=== PATIENT | female | born 1985 | race Caucasian/White ===

== ENCOUNTER 2018-11-15 19:31 | Emergency (ER) | payer MEDICAID ==
[~2018-11-15] VITALS: Ht 180.3 cm; Wt 117.9 kg
[2018-11-15 20:37] LABS: BASOPHILS ABSOLUTE AUTO 0.04 K/mm3 (0.00-0.23); BASOPHILS PERCENT AUTO 0 % (0-2); EOSINOPHILS ABSOLUTE AUTO 0.06 K/mm3 (0.00-0.68); EOSINOPHILS PERCENT AUTO 0 % (0-6); Hematocrit 36.4 % (33.0-51.0); Hemoglobin 11.4 g/dL (11.5-16.0); IMMATURE GRAN ABSOLUTE AUTO 0.05 K/mm3 (0.00-0.10); IMMATURE GRAN PERCENT AUTO 0 % (0-1); LYMPHOCYTES ABSOLUTE AUTO 1.34 K/mm3 (0.84-5.20); LYMPHOCYTES PERCENT AUTO 8 % (21-46); MONOCYTES ABSOLUTE AUTO 1.34 K/mm3 (0.16-1.47); MONOCYTES PERCENT AUTO 8 % (4-13); Mean Corpuscular HGB 22.8 pg (26.0-34.0); Mean Corpuscular HGB Conc 31.3 g/dL (31.5-36.5); Mean Corpuscular Volume 73 fL (80-100); Mean Platelet Volume 11.3 fL (9.1-12.4); NEUTROPHILS ABSOLUTE AUTO 14.01 K/mm3 (1.96-9.15); NEUTROPHILS PERCENT AUTO 83 % (41-73); Platelet Count 246 K/mm3 (150-400); RDW Coefficient Variation 15.8 % (11.7-14.2); RDW Standard Deviation 40.6 fL (35.1-46.3); White Blood Cell Count 16.84 K/mm3 (4.00-11.30)
[2018-11-15 21:00] LABS: Alanine Aminotransfer (ALT/SGP 21 U/L (12-78); Albumin, Blood 3.2 g/dL (3.4-5.0); Albumin/Globulin Ratio 0.8 (0.8-1.8); Alk Phos 81 U/L (50-136); Anion Gap 8 mmol/L (6-16); Aspartate Aminotrans (AST/SGOT 12 U/L (12-37); Bilirubin, Total 0.3 mg/dL (0.1-1.0); Blood Urea Nitrogen 8 mg/dL (8-24); Bun/Creatinine Ratio 13.7 (12.0-20.0); CO2, Blood 24 mmol/L (21-32); Calcium, Blood 8.7 mg/dL (8.5-10.1); Chloride, Blood 105 mmol/L (98-108); Creatinine, Blood 0.58 mg/dL (0.40-1.00); Globulin, Blood 3.8 g/dL (2.2-4.0); Glomerular Filtration Rate >60 (60-); Glucose, Blood 105 mg/dL (70-99); Potassium, Blood 3.4 mmol/L (3.5-5.5); Sodium, Blood 137 mmol/L (136-145)
[2018-11-15 21:32] LABS: Source, Urine Clean Catch
[2018-11-15 21:36] LABS: Bilirubin, Urine Neg (Neg); Blood, Urine 4+ (Neg); Glucose Qualitative, Urine Neg (Neg); Ketones, Urine Neg (Neg); Leukocyte Esterase, Urine 1+ (Neg); Nitrite, Urine Neg (Neg); Protein, Urine 2+ (Neg); Specific Gravity, Urine 1.005 (1.003-1.022); Urobilinogen, Urine 2+ (Normal)
[2018-11-15 21:37] LABS: Appearance, Urine Clear (Clear); Color, Urine Yellow (P-Yellow)
[2018-11-15 21:45] LABS: Bacteria Few /hpf; Red Blood Cells, Urine 0-2 /hpf (0-2); Squamous Epithelial Cells Few /hpf (Few)
[2018-11-15] MEDS ORDERED: Monodox100 MG PO (22:46)
[2018-11-15] MEDS ORDERED: Bactrim Ds Tab1 EACH PO (22:50)
== END 2018-11-15 23:00 | disposition home or self-care (01) ==
LOC: ER 19:31
PROVIDERS: Physician Assistant
DX: L03.221 Cellulitis of neck (principal); N39.0 Urinary tract infection, site not specified; E03.9 Hypothyroidism, unspecified
CPT/HCPCS: 36415; 72193; 80053; 81001; 85025; 87086; 99284-25; Q9967

== ENCOUNTER 2019-09-21 02:48 | Emergency (ER) | payer OTHER ==
[~2019-09-21] VITALS: Ht 180.3 cm; Wt 104.3 kg
[~2019-09-21 02:48] MED LIST: Bactrim Ds Tab1 EACH PO; Monodox100 MG PO
[2019-09-21] MEDS ORDERED: Prednisone50 MG PO (03:18)
== END 2019-09-21 03:27 | disposition home or self-care (01) ==
LOC: ER 02:48
DX: O99.89 Other specified diseases and conditions complicating pregnancy, childbirth and the puerperium (principal); R21 Rash and other nonspecific skin eruption; Z3A.10 10 weeks gestation of pregnancy
CPT/HCPCS: 99282

== ENCOUNTER 2019-09-27 21:31 | Emergency (ER) | payer OTHER ==
[~2019-09-27] VITALS: Ht 180.3 cm; Wt 104.3 kg
[~2019-09-27 21:31] MED LIST changes: +Prednisone50 MG PO
[2019-09-27] MEDS ORDERED: Pepcid20 MG PO (22:52)
[2019-09-27] MEDS ORDERED: BENADRYL25 MG PO (22:52)
== END 2019-09-27 23:30 | disposition home or self-care (01) ==
LOC: ER 21:31
DX: L50.9 Urticaria, unspecified (principal); Z79.899 Other long term (current) drug therapy; Z87.891 Personal history of nicotine dependence
CPT/HCPCS: 96372; 99283-25; J3301; Q0163

== ENCOUNTER 2019-10-06 20:47 | Emergency (ER) | payer OTHER ==
[~2019-10-06] VITALS: Ht 180.3 cm; Wt 104.3 kg
[~2019-10-06 20:47] MED LIST changes: +BENADRYL25 MG PO; +Pepcid20 MG PO
[2019-10-06] MEDS ORDERED: PRED5 PO (21:10)
[2019-10-06] MEDS ORDERED: Bactrim Ds Tab1 EACH PO (21:20)
[2019-10-06] MEDS ORDERED: CEPH500 PO (21:20)
== END 2019-10-06 21:37 | disposition home or self-care (01) ==
LOC: ER 20:47
DX: L03.221 Cellulitis of neck (principal); R21 Rash and other nonspecific skin eruption; E11.9 Type 2 diabetes mellitus without complications; E03.9 Hypothyroidism, unspecified; Z79.899 Other long term (current) drug therapy
CPT/HCPCS: 99283; A9270; A9270-GY

== ENCOUNTER 2020-09-16 20:15 | Emergency (ER) | payer OTHER ==
[~2020-09-16] VITALS: Ht 180.3 cm; Wt 122.5 kg
[~2020-09-16 20:15] MED LIST changes: +CEPH500 PO; +PRED5 PO
[2020-09-17] MEDS ORDERED: Norco 5-325 Ta1 EACH PO (11:44)
[2020-09-17] MEDS ORDERED: AMOCLA875 PO (11:44)
== END 2020-09-16 22:53 | disposition left against medical advice (07) ==
LOC: ER 20:15
DX: Z53.21 Procedure and treatment not carried out due to patient leaving prior to being seen by health care provider (principal)

== ENCOUNTER 2020-09-17 10:43 | Emergency (ER) | payer OTHER ==
[~2020-09-17] VITALS: Ht 180.3 cm; Wt 97.5 kg
[2020-09-17] MEDS ORDERED: AMOCLA875 PO (11:44)
[2020-09-17] MEDS ORDERED: Norco 5-325 Ta1 EACH PO (11:44)
== END 2020-09-17 12:09 | disposition home or self-care (01) ==
LOC: ER 10:43
DX: O99.611 Diseases of the digestive system complicating pregnancy, first trimester (principal); K01.1 Impacted teeth; K02.9 Dental caries, unspecified; Z3A.10 10 weeks gestation of pregnancy; Z79.52 Long term (current) use of systemic steroids; Z79.899 Other long term (current) drug therapy
CPT/HCPCS: 99282

== ENCOUNTER → 2021-03-06 | Outpatient (CLI) | payer OTHER ==
[~2021-03-06] MED LIST changes: +AMOCLA875 PO; +Norco 5-325 Ta1 EACH PO
[2021-03-08 17:10] LABS: HPV 16 Negative (Negative); HPV 18 Positive (Negative); HPV OTHER HR TYPES Positive (Negative)
== END | disposition home or self-care (01) ==
LOC: LAB SHORT 17:46 → LAB 17:46
PROVIDERS: Obstetrics & Gynecology
DX: Z01.419 Encounter for gynecological examination (general) (routine) without abnormal findings (principal)
CPT/HCPCS: 87624; 87625; G0123

== ENCOUNTER → 2021-08-22 | Outpatient (CLI) | payer OTHER | END | disposition home or self-care (01) | LOC: LAB SHORT 11:53 → LAB 11:53 | DX: O09.93 Supervision of high risk pregnancy, unspecified, third trimester (principal) | CPT/HCPCS: 87081; 87150 ==

== ENCOUNTER 2022-12-17 19:38 | Emergency (ER) | payer OTHER ==
[~2022-12-17] VITALS: Ht 180.3 cm; Wt 90.7 kg
[~2022-12-17 19:38] MED LIST changes: +DOCU100 PO; +IBUP800 PO; +OXYC5 PO; +PRENATAL TABLE1 EAC2 PO
[2022-12-17 22:10] LABS: BASOPHILS ABSOLUTE AUTO 0.06 K/mm3 (0.00-0.23); BASOPHILS PERCENT AUTO 0 % (0-2); EOSINOPHILS ABSOLUTE AUTO 0.12 K/mm3 (0.00-0.68); EOSINOPHILS PERCENT AUTO 1 % (0-6); Hematocrit 37.4 % (33.0-51.0); Hemoglobin 11.7 g/dL (11.5-16.0); IMMATURE GRAN ABSOLUTE AUTO 0.07 K/mm3 (0.00-0.10); IMMATURE GRAN PERCENT AUTO 1 % (0-1); LYMPHOCYTES ABSOLUTE AUTO 1.21 K/mm3 (0.84-5.20); LYMPHOCYTES PERCENT AUTO 8 % (21-46); MONOCYTES ABSOLUTE AUTO 0.68 K/mm3 (0.16-1.47); MONOCYTES PERCENT AUTO 4 % (4-13); Mean Corpuscular HGB 20.9 pg (26.0-34.0); Mean Corpuscular HGB Conc 31.3 g/dL (31.5-36.5); Mean Corpuscular Volume 67 fL (80-100); Mean Platelet Volume 10.9 fL (9.1-12.4); NEUTROPHILS ABSOLUTE AUTO 13.26 K/mm3 (1.96-9.15); NEUTROPHILS PERCENT AUTO 86 % (41-73); Platelet Count 378 K/mm3 (150-400); RDW Coefficient Variation 16.5 % (11.7-14.2); RDW Standard Deviation 38.4 fL (35.1-46.3); Red Blood Cell Count 5.61 M/mm3 (3.80-5.20)
[2022-12-17 22:43] LABS: Albumin, Blood 3.9 g/dL (3.4-5.0); Albumin/Globulin Ratio 0.9 (0.8-1.8); Bilirubin, Total 0.5 mg/dL (0.1-1.0); Bun/Creatinine Ratio 11.8 (12.0-20.0); Calcium, Blood 9.8 mg/dL (8.5-10.1); Creatinine, Blood 0.85 mg/dL (0.40-1.00); Globulin, Blood 4.3 g/dL (2.2-4.0); Potassium, Blood 3.3 mmol/L (3.5-5.5); Total Protein, Blood 8.2 g/dL (6.4-8.2)
[2022-12-18 01:40] LABS: Source, Urine Clean Catch
[2022-12-18 01:42] LABS: Appearance, Urine Hazy (Clear); Bilirubin, Urine Neg (Neg); Blood, Urine 4+ (Neg); Color, Urine Yellow (P-Yellow); Glucose Qualitative, Urine Neg (Neg); Ketones, Urine 4+ (Neg); Leukocyte Esterase, Urine Neg (Neg); Nitrite, Urine Neg (Neg); Protein, Urine 2+ (Neg); Urobilinogen, Urine NORM (Normal)
[2022-12-18 01:55] LABS: Amorphous Light (0-Heavy); Bacteria Few /hpf; Squamous Epithelial Cells Rare /hpf (Few); White Blood Cells, Urine 0-2 /hpf (0-5)
[2022-12-18 02:07] VITALS: BP 95/62
[2022-12-18] MEDS ORDERED: IBUP600 PO (02:11)
[2022-12-18] MEDS ORDERED: ONDA4ODT MM (02:11)
[2022-12-18] MEDS ORDERED: Norco 5-325 Ta1 EACH PO (02:11)
== END 2022-12-18 02:39 | disposition home or self-care (01) ==
LOC: ER 19:38
PROVIDERS: Emergency Medicine
DX: N23 Unspecified renal colic (principal); Z79.899 Other long term (current) drug therapy; E03.9 Hypothyroidism, unspecified; E11.9 Type 2 diabetes mellitus without complications
CPT/HCPCS: 74177; 80053; 81001; 85025; 96374-59; 96375; 96376; 99284-25; A9270; J1885; J2270; J2765; J7030; Q9967